=== PATIENT | female | born 1985 | race Caucasian/White ===

== ENCOUNTER 2019-02-20 09:19 | Emergency (ER) | payer BC, OTHER ==
[2019-02-20 09:29] VITALS: BP 117/73
--- NOTE | 2019-02-20 11:30 | UC ---
Complaint Female HPI - HPI Summary HPI Summary: 33 y/o female presents to the urgent care c/o frequency and burning on urination for the past 2 days. 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 Pt has been drinking water no medications. LMP; 02/12/2019 w/ regular menstrual cycles. pt denies fever, SOB, chest pain, HERRON. flank pain, vaginal discharge, abdominal pain, N/v/d or Hx of STD - History Of Current Complaint Chief Complaint: UCGU Stated Complaint: URINE ISSUES Time Seen by Provider: 02/20/19 11:08 Hx Obtained From: Patient Hx Last Menstrual Period: 02/12/19 ?: No Onset/Duration: Gradual Onset, Lasting Days - 2 days, Still Present, Worse Since - today Timing: Intermittent, Lasting Seconds Severity Initially: Mild Severity Currently: Moderate Pain Intensity: 8 Pain Scale Used: 0-10 Numeric Character: Burning Aggravating Factor(s): Urination Associated Signs And Symptoms: Positive: Negative. Negative: Fever, Back Pain, Vaginal Discharge, Nausea, Genital Swelling, Genital Blisters Related Hx: Similar Episode/Dx as: - UTI - Risk Factors Ectopic Risk Factor: Negative Ovarian Torsion Risk Factor: Negative - Allergies/Home Medications Allergies/Adverse Reactions: Allergies Allergy/AdvReac Type Severity Reaction Status Date / Time sulfamethoxazole Allergy See Comment Verified 02/20/19 09:30 [From Bactrim] trimethoprim [From Bactrim] Allergy See Comment Verified 02/20/19 09:30 PMH/Surg Hx/FS Hx/Imm Hx Previously Healthy: Yes Other GI/ History: recurrent UTI since she has uterer stent - Surgical History Surgical History: Yes Surgery Procedure, Year, and Place: RIGHT KIDNEY URETER REMOVAL/STENT - Family History Known Family History: Positive: Hypertension Negative: Diabetes Family History: father htn - Social History Occupation: Employed Full-time Lives: With Family Alcohol Use: Occasionally Substance Use Type: None Smoking Status (MU): Light Every Day Tobacco Smoker Type: Cigarettes Amount Used/How Often: 5-10 CIGARETTES Length of Time of Smoking/Using Tobacco: 15 YEARS Have You Smoked in the Last Year: Yes Household Exposure Type: Cigarettes - Immunization History Most Recent Tetanus Shot: UTD Review of Systems All Other Systems Reviewed And Are Negative: Yes Constitutional: Positive: Negative Skin: Positive: Negative Eyes: Positive: Negative ENT: Positive: Negative Respiratory: Positive: Negative Cardiovascular: Positive: Negative Gastrointestinal: Positive: Negative Genitourinary: Positive: Dysuria, Frequency, Urgency Motor: Positive: Negative Neurovascular: Positive: Negative Musculoskeletal: Positive: Negative Neurological: Positive: Negative Psychological: Positive: Negative Is Patient Immunocompromised?: No Physical Exam - Summary Physical Exam Summary: VITAL SIGNS: Reviewed. GENERAL: Patient is a well developed and nourished female who is sitting comfortable in the examining table. Patient is not in any acute respiratory distress. HEAD AND FACE: No signs of trauma. No ecchymosis, hematomas or skull depressions. No sinus tenderness. EYES: PERRLA, EOMI x 2, No injected conjunctiva, clear watery eyes, no nystagmus. No photophobia. EARS: Hearing grossly intact. Ear canals and tympanic membranes are within normal limits. MOUTH: pharynx with no erythema, no exudates,no palatal petechiae. no B/L tonsillar enlargement Uvula in midline. NECK: Supple, trachea is midline, no lymphadenopathy, no JVD, no carotid bruit, no c-spine tenderness, neck with full ROM. CHEST: Symmetric, no tenderness at palpation LUNGS: Clear to auscultation bilaterally. No wheezing or crackles. CVS: Regular rate and rhythm, S1 and S2 present, no murmurs or gallops appreciated. ABDOMEN: Soft, non-tender. No signs of distention. No rebound no guarding, and no masses palpated. Bowel sounds are normal. BACK:no scoliosis or lesions, non tender to palpation, No B/L CVA tenderness EXTREMITIES: FROM in all major joints, no edema, no cyanosis or clubbing. NEURO: Alert and oriented x 3. No acute neurological deficits. Speech is normal and follows commands. SKIN: Dry and warm Triage Information Reviewed: Yes Vital Signs: Initial Vital Signs Temp 97.8 F 02/20/19 09:26 Pulse 67 02/20/19 09:26 Resp 16 02/20/19 09:26 BP 117/73 02/20/19 09:26 Pulse Ox 98 02/20/19 09:26 Complaint Female Dx - Course Course Of Treatment: 33 y/o female presents to the urgent care c/o frequency and burning on urination for the past 2 days. 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 Pt has been drinking water no medications. LMP; 02/12/2019 w/ regular menstrual cycles. pt denies fever, SOB, chest pain, HERRON. flank pain, vaginal discharge, abdominal pain, N/v/d or Hx of STD. Hx obtained. UA ordered. UA results: Blood 3+, Leukoesterase 1+, ketones 1+. Pt Rx Nitrofurantoin 100mg PO x 7 days. Pyridium 100mg PO TID x 2 days. First dose given at the clinic by nurse. Advised to increase fluid intake.Sensitivity reports form previous UTI show resistance to PCP. Urine sent for culture if any abnormality Pt will be notified for further treatment. Pt advised If symptoms do not improve to return to the urgent care or f/u with PCP. Pt understood and agreed. Left the clinic ambulating. - Differential Dx/Diagnosis Differential Diagnosis/HQI/PQRI: Cervicitis, Pelvic Inflammatory Disease, Renal Colic, Sexually Transmitted Disease, Ureteral Stone, Urinary Tract Infection Provider Diagnosis: UTI (urinary tract infection) Discharge - Sign-Out/Discharge Documenting (check all that apply): Patient Departure - D/c home All imaging exams completed and their final reports reviewed: No Studies - Discharge Plan Condition: Stable Disposition: HOME Prescriptions: Nitrofurantoin Macrocrystals* [Macrodantin 100 mg*] 100 mg PO BID #13 cap Phenazopyridine TAB* [Pyridium 100 mg TAB*] 100 mg PO TID #5 tab Patient Education Materials: Urinary Tract Infection in Women (ED) Referrals: Daniela Nash MD [Primary Care Provider] - 3 Days Additional Instructions: 1- Please take Nitrofurantoin PO x 7 days. Pyridium 100 mg PO TID x 2 days to alleviate urinary symptoms. Increase increase fluid intake. drink cranberry juice. 2-Urine sent for culture if any abnormality, you will be notified for further treatment. 3-If symptoms do not improve please return to the urgent care or f/u with your PCP for further management. - Billing Disposition and Condition Condition: STABLE Disposition: Home
[2019-02-20] MEDS ORDERED: Phenazopyridine TAB* 100 MG PO ONE (11:39)
[2019-02-20] MEDS ORDERED: Nitrofurantoin Macrocrystals* 50 MG CAP PO ONE (11:39)
== END 2019-02-20 11:50 | disposition home or self-care (01) ==
LOC: UCEAST 09:19
DX: N39.0 Urinary tract infection, site not specified (principal); Z87.440 Personal history of urinary (tract) infections; Z88.2 Allergy status to sulfonamides; F17.210 Nicotine dependence, cigarettes, uncomplicated
CPT/HCPCS: 81003; 87077; 87086; 87186; 99212; A9270-GY; G0463